=== PATIENT | male | born 1960 | race Hispanic/Latino ===

== ENCOUNTER 2024-01-19 11:43 | Emergency (ER) | payer SELFPAY ==
[~2024-01-19] VITALS: Ht 175.3 cm; Wt 90.8 kg
[2024-01-19] MEDS ORDERED: LISINOPRIL10 MG PO (12:13)
[2024-01-19] MEDS ORDERED: METFORMIN HCL500 MG PO (13:11)
[2024-01-19 13:50] VITALS: PULSE 74; RESP 16; TEMP 98.1; O2SAT 100
== END 2024-01-19 13:50 | disposition home or self-care (01) ==
LOC: FSED 11:48
DX: R73.9 Hyperglycemia, unspecified (principal); I10 Essential (primary) hypertension
CPT/HCPCS: 80053; 85025; 99283